=== PATIENT | male | born 1965 | race Caucasian/White ===

== ENCOUNTER 2017-02-25 19:34 | Emergency (ER) | payer OTHER ==
[2017-02-25 19:55] VITALS: BP 142/90; BMI 39.5
[2017-02-25] MEDS ORDERED: DILAUDID INJ IM ONE (21:29)
--- NOTE | 2017-02-25 21:30 | DR.GENAD ---
HPI - PCP Primary Care Physician: NFD - Complaint/Symptoms Chief Complaint Doctors Comments: Patient states that he feel onto the floor on yesterday. He reports that his ribs on the left side have been hurting every since. Chief Complaint:: FELL ON LEFT SIDE; HURTS UPON BREATHING AND COUGHING Self Treatment fo Chief Complaint: TYLENOL; IBUPROFEN - Source History Provided: Patient - Mode of Arrival Mode of Arrival: Ambulatory - Timing Onset of Chief Complaint: 02/24/17 PMH - PMH Past Medical History: Yes Past Medical History: CHF, COPD, Diabetes, Hypertension Past Surgical History: Yes Surgical History: Appendectomy Past Surgical History Comment: RIGHT ELBOW SURGERY - Family History History of Family Medical Conditions: No - Social History Does patient currently use any type of tobacco product: No Have you used tobacco products in the last 12 months: Yes Type of Tobacco Use: None Alcohol Use: None Do you use any recreational Drugs:: No Lives Where: Home - infectious screening In the last 2 months have you had wt loss of >10#?: NO Have you had fever, night sweats or hemotysis?: No Have you traveled outside the country in the last 6 months?: No Isolation: Standard ROS - Review of Systems Constitutional: negative: Diaphoresis Eyes: No Symptoms Reported ENTM: No Symptoms Reported Respiratoy: No Symptoms Reported Cardiovascular: No Symptoms Reported Gastrointestinal/Abdominal: No Symptoms Reported, Abdominal Pain Neurological: No Symptoms Reported Musculoskeletal: No Symptoms Reported Integumentary: No Symptoms Reported Hematologic/Lymphatic: No Symptoms Reported Endocrine: No Symptoms Reported Psychiatric: No Symptoms Reported All Other Systems: Reviewed and Negative PE - Vital Signs Vitals: Temperature 98.5 F Pulse Rate 113 Respiratory Rate 22 Blood Pressure 142/90 O2 Sat by Pulse Oximetry 95 - General Limitations: No Limitations General Appearance: Alert, In No Apparent Distress - Head Head Exam: Normal Inspection, Atraumatic - Eyes Eye exam: Normal Appearance, PERRL, EOMI - ENT ENT Exam: Normal Exam External Ear Exam: Normal External Inspection TM/Canal Exam: Bilateral Normal Nose Exam: Normal Nose Exam, Sinus Tenderness Mouth Exam: Normal Inspection Throat Exam: Normal Inspection - Neck Neck Exam: Normal Inspection, Full ROM - Chest Chest Inspection: Normal Inspection, Tenderness (left upper mid axillary line.) - Respiratory Respiratory Exam: Normal Lung Sounds Bilat Respiratory Exam: Bilateral Clear to Auscultation - Cardiovascular Cardiovascular Exam: Regular Rate, Normal Rhythm - Abdominal Exam Abdominal Exam: Normal Inspection, Normal Bowel Sounds Abdominal Tenderness: negative: RUQ, RLQ, LUQ, LLQ, Epigastrium, Suprapubic, Diffuse, Mild, Moderate, Severe, Other - Extremities Extremities Exam: Normal Inspection, Full ROM - Back Back Exam: Normal Inspection, Full ROM - Neurologic Neurological Exam: Alert, Oriented X3, CN II-XII Intact - Psychiatric Psychiatric Exam: Normal Affect Course - Reevaluation 1st: Improved ROR - XRAY XRAY Interpreted by: Radiologist (Rib series: 8th rib fracture posterior lateral left) - Diagnosis Discharge Problem: Left rib fracture Qualifiers: Encounter type: initial encounter Rib fracture type: single rib Fracture type: closed Qualified Code(s): S22.32XA - Fracture of one rib, left side, initial encounter for closed fracture - Discharge Plan Disposition: 01 HOME, SELF-CARE Condition: Stable Prescriptions: Hydrocodone/Acetaminophen [Hydrocodon-Acetaminophen 5-325] 1 each PO Q4-6H PRN # 12 tablet PRN Reason: - Follow ups/Referrals Follow ups/Referrals: NFD,None [Primary Care Provider] - 3 days - Instructions Instructions: Rib Fracture
[2017-02-25] MEDS ORDERED: DILAUDID INJ ONE (21:36)
--- NOTE | 2017-02-25 22:17 | RAD ---
EXAM: Left Rib x-rays series INDICATION: Chest pain COMPARISION: No priors available for comparison TECHNIQUE: 5 views were obtained with AP and multiple oblique planes. FINDINGS: There is a lateral rib fracture of the 8th rib on the left.. No pneumothorax. The regional skeleton i s intact. The visualized lung coffey are clear. The cardiac silhouette and mediastinum appear unremar kable. IMPRESSION: 8th rib fracture located posterior laterally on the left. Reported By:
== END 2017-02-25 23:00 | disposition home or self-care (01) ==
LOC: ER 19:34
DX: S22.32XA Fracture of one rib, left side, initial encounter for closed fracture (principal); W19.XXXA Unspecified fall, initial encounter; Y92.9 Unspecified place or not applicable
CPT/HCPCS: 71111; 96372; 99282; 99283

== ENCOUNTER 2017-08-05 18:24 | Emergency (ER) | payer SELFPAY ==
[2017-08-05 18:32] VITALS: BP 172/99; BMI 38.7
[2017-08-05] MEDS ORDERED: TORADOL 60 MG VIAL IM ONE (19:32)
[2017-08-05] MEDS ORDERED: DIFLUCAN PO ONE (19:32)
[2017-08-05] MEDS ORDERED: ROCEPHIN VIAL 1 GM IM ONE (19:32)
[2017-08-05] MEDS ORDERED: TORADOL 60 MG VIAL ONE (19:43)
[2017-08-05] MEDS ORDERED: XYLOCAINE 1 % (PLAIN) ONE (19:44)
[2017-08-05] MEDS ORDERED: ROCEPHIN VIAL 1 GM ONE (19:44)
[2017-08-05] MEDS ORDERED: DIFLUCAN ONE (19:44)
--- NOTE | 2017-08-05 20:13 | DR.GENAD ---
HPI - PCP Primary Care Physician: NFD - Complaint/Symptoms Chief Complaint Doctors Comments: Patient states he has had problems with his foreskin on his penis being hard to retract at times but it would always go back over his glans penis until two days ago he had sex and the foreskin has not retracted over his glans penis. States it is like a rubber band around his penis and has been swelling and hurting and he is not able to pull the foreskin down. States he is a diabetic and is in severe pain when his penis rubs against his legs. States he is a patient of Dr. Hunter in [place]. States he has never been circumcised. He denies fever, chills, nausea, vomiting, hematuria or melenia. He denies any recent trauma except sexual activity. States the pain is 10 of 10. Chief Complaint:: FORESKIN WILL NOT RETRACT - Nurses notes reviewed Nurses Notes Review: Yes - Source History Provided: Patient - Mode of Arrival Mode of Arrival: Ambulatory - Timing Onset of Chief Complaint: 08/03/17 Came on: Gradually - Duration Duration: Constant How lon Duration: Days - Location Location: foreskin - Severity Severity: Moderate - Modifying Factors Worsens:: movement Improves:: nothing PMH - PMH Past Medical History: Yes Past Medical History: Diabetes, Hypertension Past Surgical History: Yes Surgical History: Appendectomy, Ortho Surgery - Family History History of Family Medical Conditions: Yes Family Medical History: Cancer, Coronary Artery Disease, Hypertension - Social History Does patient currently use any type of tobacco product: Yes Have you used tobacco products in the last 12 months: Yes Type of Tobacco Use: Cigarettes Does any household member use tobacco: No Alcohol Use: None Do you use any recreational Drugs:: No Lives With: Family Lives Where: Home - infectious screening In the last 2 months have you had wt loss of >10#?: NO Have you had fever, night sweats or hemotysis?: No Have you traveled outside the country in the last 6 months?: No Isolation: Standard ROS - Review of Systems Constitutional: No Symptoms Reported, Fever. negative: Fatigue Eyes: No Symptoms Reported ENTM: No Symptoms Reported Respiratoy: No Symptoms Reported. negative: See HPI, Productive Cough, Non- Productive Cough, Moist Cough, Dry Cough, Hacking Cough, Barking Cough, Brassy Cough, Orthopnea, Short of Breath, Stridor, Wheezing, Hemoptysis, Other Cardiovascular: No Symptoms Reported. negative: See HPI, Chest Pain, Edema, Palpitations, Syncope, Cyanosis, Skin Mottling, Other Gastrointestinal/Abdominal: No Symptoms Reported. negative: See HPI, Abdominal Pain, Constipation, Diarrhea, Nausea, Vomiting, Food Intolerance, Other Genitourinary: Pain (dorsal shaft penis with irritation). negative: No Symptoms Reported, See HPI, Discharge, Dysuria, Frequency, Hematuria, Bleeding, Other Neurological: No Symptoms Reported Musculoskeletal: No Symptoms Reported Integumentary: No Symptoms Reported. negative: See HPI, Change in Color, Change in Hair/Nails, Dryness, Lesions, Lumps, Rash, Itching, Wound, Bruises, Juandice, Other Hematologic/Lymphatic: No Symptoms Reported. negative: See HPI, Anemia, Blood Clots, Easy Bleeding, Easy Bruising, Swollen Glands, Lymphadenopathy, Other Endocrine: No Symptoms Reported Psychiatric: No Symptoms Reported PE - Vital Signs Vitals: Temperature 98.2 F Pulse Rate 130 Respiratory Rate 16 Blood Pressure 172/99 O2 Sat by Pulse Oximetry 96 - General Limitations: No Limitations General Appearance: Alert, In Distress (mild) - Head Head Exam: Normal Inspection, Atraumatic, Normocephalic - Eyes Eye exam: Normal Appearance, PERRL, EOMI. negative: Scleral Icterus, Conjunctival Injection, Nystagmus, Miosis, Mydrasis, Periorbital Swelling, Periorbital Tenderness, Other - ENT ENT Exam: Normal Exam, Normal Oropharynx, Normal External Ear Exam, Mucous Membranes Moist, TM's Normal Bilaterally External Ear Exam: Normal External Inspection TM/Canal Exam: Bilateral Normal Nose Exam: Normal Nose Exam Mouth Exam: Normal Inspection Throat Exam: Normal Inspection - Neck Neck Exam: Normal Inspection, Full ROM, Trachea Midline - Chest Chest Inspection: Normal Inspection, Symmetric Chest Wall Rise - Respiratory Respiratory Exam: Normal Lung Sounds Bilat Respiratory Exam: Bilateral Clear to Auscultation - Cardiovascular Cardiovascular Exam: Regular Rate, Normal Rhythm, Normal Heart Sounds - Abdominal Exam Abdominal Exam: Normal Inspection, Normal Bowel Sounds, Soft Abdominal Tenderness: negative: RUQ, RLQ, LUQ, LLQ, Epigastrium, Suprapubic, Diffuse, Mild, Moderate, Severe, Other - Extremities Extremities Exam: Normal Inspection, Full ROM, Tenderness - Back Back Exam: Normal Inspection, Full ROM. negative: Tenderness, (R) CVA Tenderness, (L) CVA Tenderness, Muscle Spasm, Paraspinal Tenderness, Vertebral Tenderness, Rashes, (R) Sciatic Notch Tenderness, (L) Sciatic Notch Tendern, (R ) Straight Leg Raise, (L) Straight Leg Raise, Other - Neurologic Neurological Exam: Alert, Oriented X3, CN II-XII Intact, Normal Gait, Reflexes Normal - Psychiatric Psychiatric Exam: Normal Affect, Normal Mood - Skin Skin Exam: Warm, Dry, Intact, Normal Color, Rash (Penis with tight area of skin proximal to glans penis with ulceration and denuded skin with white exudate; no penile dischare) - Diagnosis Discharge Problem: Balanitis, Candidal dermatitis, cellulit of foreskin - Discharge Plan Disposition: 01 HOME, SELF-CARE Condition: Stable Prescriptions: Cephalexin [KEFLEX CAP 500 MG *] 500 mg PO TID #30 cap Clotrimazole 1 % (Topical) [LOTRIMIN CREAM 1% *] 1 applic EXT BID #15 gm Fluconazole [Diflucan] 100 mg PO DAILY #14 tab Ibuprofen [MOTRIN TAB 800 MG *] 800 mg PO BID PRN #24 tab PRN Reason: Pain/Inflammation Mupirocin Oint [BACTROBAN OINT 2%] 1 applic EXT BID #22 gm - Follow ups/Referrals Follow ups/Referrals: NFD,None [Primary Care Provider] - 3 days HELLEN RILEY [CONSULTING PHYSICIAN] - 3 days BRENTON KAT [STAFF PHYSICIAN] - 3 days - Instructions
== END 2017-08-05 20:33 | disposition home or self-care (01) ==
LOC: ER 18:50
DX: N48.1 Balanitis (principal); B37.2 Candidiasis of skin and nail
CPT/HCPCS: 96372; 99282; J0696; J1885; J2001